=== PATIENT | female | born 1935 | race Caucasian/White ===

== ENCOUNTER 2018-03-21 14:24 | Inpatient (IN) | payer OTHER, MEDICAID ==
[~2018-03-21] VITALS: Ht 160 cm; Wt 92.1 kg
[~2018-03-21 14:24] MED LIST: ALENDRONATE SOD70 M2 PO; BENAZEPRIL20 M1 PO; COLACE100 MG PO; DILANTIN100 MG PO; LAC PO; LAMICTAL200 MG PO; LEVAQUIN250 MG PO; LEVOTHYROXINE0.1 M2 PO; LOVASTATIN20 MG PO; METFORMIN ER500 M1 PO; MOTRIN800 MG PO; NEURONTIN600 MG PO; NOR10T PO; NORCO1 TA2 PO
[2018-03-21 14:26] VITALS: Ht 160 cm; Wt 92.1 kg
[2018-03-21 15:22] LABS: BASOPHIL % 0.7 % (0-2); PLATELET COUNT 168 x10^3mcL (130-400)
[2018-03-21 15:25] LABS: CALCIUM 9.1 mg/dL (8.5-10.1); CARBON DIOXIDE 24.3 mmol/L (21-32); CHLORIDE SERUM 104 mmol/L (98-107); CREATININE SERUM 1.2 mg/dL (0.6-1.0); GLUCOSE SERUM 145 mg/dL (74-106); POTASSIUM SERUM 5.2 mmol/L (3.5-5.1); SODIUM SERUM 136 mmol/L (136-145)
[2018-03-21 15:30] LABS: ALBUMIN 3.3 g/dL (3.4-5.0); ALKALINE PHOSPHATASE 110 U/L (46-116); ALT/SGPT 20 U/L (14-59); AST/SGOT 19 U/L (15-37); BILIRUBIN TOTAL 0.4 mg/dL (0.20-1.00)
[2018-03-21 17:58] LABS: MAGNESIUM 2.1 mg/dL (1.8-2.4); PHOSPHOROUS 3.6 mg/dL (2.5-4.9)
[2018-03-21 17:59] LABS: CHOLESTEROL/HDL RATIO 1.8
[2018-03-21 18:08] LABS: FREE T4 0.99 ng/dL (0.76-1.46); FREE THYROXINE INDEX 1.8 ug/dL (1.4-4.5); T4(THYROXINE) 5.6 ug/dL (4.7-13.3)
[2018-03-21 18:17] LABS: T3 TOTAL 0.74 ng/mL
[2018-03-21 18:30] VITALS: BP 124/58
[2018-03-21] MEDS ORDERED: LAMICTAL150 MG PO (19:23)
[2018-03-21] MEDS ORDERED: DILANTIN100 MG PO (19:25)
[2018-03-21] MEDS ORDERED: LOVASTATIN20 MG PO (19:25)
[2018-03-21] MEDS ORDERED: NORCO 10-325 T1 EACH PO (19:26)
[2018-03-21 19:46] LABS: UA SPECIFIC GRAVITY 1.015 (1.005-1.035); microscopic required? YES; urine erythrocyte TRACE (NEGATIVE)
[2018-03-21 19:56] LABS: AMPHETAMINE QUAL UR NONE DETECTED (See below)
[2018-03-21 21:49] VITALS: BP 97/52
[2018-03-21 22:53] VITALS: BP 127/46
[2018-03-22 03:53] LABS: BASOPHIL % 0.5 % (0-2); PLATELET COUNT 154 x10^3mcL (130-400); RED CELL DISTRIBUTION WIDTH 13.9 % (11.5-14.5)
[2018-03-22 03:56] LABS: CALCIUM 8.5 mg/dL (8.5-10.1); CARBON DIOXIDE 29.1 mmol/L (21-32); CHLORIDE SERUM 103 mmol/L (98-107); GLUCOSE SERUM 116 mg/dL (74-106); MAGNESIUM 1.8 mg/dL (1.8-2.4); PHOSPHOROUS 4.2 mg/dL (2.5-4.9); POTASSIUM SERUM 4.4 mmol/L (3.5-5.1); SODIUM SERUM 137 mmol/L (136-145)
[2018-03-22 06:08] VITALS: BP 126/54
[2018-03-22 09:24] VITALS: BP 116/53
[2018-03-22 13:04] VITALS: BP 105/42
[2018-03-22 17:40] VITALS: BP 115/45
[2018-03-22 20:49] VITALS: BP 134/47
[2018-03-22 21:20] VITALS: BP 129/44
[2018-03-23 05:29] VITALS: BP 102/40
[2018-03-23 06:11] LABS: PLATELET COUNT 155 x10^3mcL (130-400); RED CELL DISTRIBUTION WIDTH 13.8 % (11.5-14.5)
[2018-03-23 06:50] LABS: CALCIUM 8.4 mg/dL (8.5-10.1); CARBON DIOXIDE 27.6 mmol/L (21-32); CHLORIDE SERUM 100 mmol/L (98-107); CREATININE SERUM 0.9 mg/dL (0.6-1.0); GLUCOSE SERUM 110 mg/dL (74-106); MAGNESIUM 1.8 mg/dL (1.8-2.4); PHOSPHOROUS 3.6 mg/dL (2.5-4.9); POTASSIUM SERUM 4.3 mmol/L (3.5-5.1); SODIUM SERUM 133 mmol/L (136-145)
[2018-03-23 09:40] VITALS: BP 106/46
[2018-03-23 12:35] VITALS: BP 92/42
[2018-03-23 17:27] VITALS: BP 108/35
[2018-03-23 19:45] VITALS: BP 138/54
[2018-03-24 05:54] VITALS: BP 124/52
[2018-03-24 06:32] LABS: BASOPHIL % 1.8 % (0-2); PLATELET COUNT 160 x10^3mcL (130-400); RED CELL DISTRIBUTION WIDTH 13.9 % (11.5-14.5)
[2018-03-24 06:45] LABS: CALCIUM 7.9 mg/dL (8.5-10.1); CARBON DIOXIDE 26.1 mmol/L (21-32); CHLORIDE SERUM 96 mmol/L (98-107); CREATININE SERUM 1.2 mg/dL (0.6-1.0); GLUCOSE SERUM 111 mg/dL (74-106); POTASSIUM SERUM 4.8 mmol/L (3.5-5.1); SODIUM SERUM 130 mmol/L (136-145)
[2018-03-24 09:37] VITALS: BP 108/51
[2018-03-24 12:47] VITALS: BP 109/42
[2018-03-24 17:22] VITALS: BP 119/41
[2018-03-24 21:24] VITALS: BP 108/50
[2018-03-25 05:37] VITALS: BP 98/50
[2018-03-25 06:31] LABS: CARBON DIOXIDE 25.9 mmol/L (21-32); CHLORIDE SERUM 96 mmol/L (98-107); CREATININE SERUM 1.6 mg/dL (0.6-1.0); GLUCOSE SERUM 98 mg/dL (74-106); POTASSIUM SERUM 4.5 mmol/L (3.5-5.1); SODIUM SERUM 132 mmol/L (136-145)
[2018-03-25 06:40] LABS: BASOPHIL % 0.4 % (0-2); PLATELET COUNT 165 x10^3mcL (130-400); RED CELL DISTRIBUTION WIDTH 13.9 % (11.5-14.5)
[2018-03-25 09:17] VITALS: BP 98/50
[2018-03-25 10:34] VITALS: BP 108/43
[2018-03-25 14:30] VITALS: BP 103/49
[2018-03-25 17:33] VITALS: BP 105/46
[2018-03-25 21:23] VITALS: BP 108/51
[2018-03-26 05:43] VITALS: BP 102/46
[2018-03-26 06:29] LABS: BASOPHIL % 0.3 % (0-2); PLATELET COUNT 164 x10^3mcL (130-400); RED CELL DISTRIBUTION WIDTH 13.9 % (11.5-14.5)
[2018-03-26 07:14] LABS: CALCIUM 7.6 mg/dL (8.5-10.1); CARBON DIOXIDE 25.4 mmol/L (21-32); CHLORIDE SERUM 96 mmol/L (98-107); CREATININE SERUM 2.1 mg/dL (0.6-1.0); GLUCOSE SERUM 95 mg/dL (74-106); POTASSIUM SERUM 5.3 mmol/L (3.5-5.1); SODIUM SERUM 131 mmol/L (136-145)
[2018-03-26 09:37] VITALS: BP 127/49
[2018-03-26 11:10] LABS: microscopic required? YES; urine erythrocyte NEGATIVE (NEGATIVE)
[2018-03-26 11:36] LABS: CREATININE UR 67.3 mg/dL
[2018-03-26 13:53] VITALS: BP 100/45
[2018-03-26 17:32] VITALS: BP 104/39
[2018-03-26 20:46] VITALS: BP 131/44
[2018-03-27 06:19] VITALS: BP 124/74
[2018-03-27 08:20] LABS: BASOPHIL % 0.4 % (0-2); PLATELET COUNT 168 x10^3mcL (130-400); RED CELL DISTRIBUTION WIDTH 13.6 % (11.5-14.5)
[2018-03-27 10:01] LABS: CALCIUM 8.9 mg/dL (8.5-10.1); CARBON DIOXIDE 25.4 mmol/L (21-32); CHLORIDE SERUM 97 mmol/L (98-107); CREATININE SERUM 1.7 mg/dL (0.6-1.0); GLUCOSE SERUM 134 mg/dL (74-106); SODIUM SERUM 132 mmol/L (136-145)
[2018-03-27 10:12] VITALS: BP 146/52
[2018-03-27 10:57] LABS: POTASSIUM SERUM 5.6 mmol/L (3.5-5.1)
[2018-03-27 13:05] VITALS: BP 150/70
[2018-03-27] MEDS ORDERED: IPRATROPIUM BROM3 M2 HHN (14:04)
[2018-03-27] MEDS ORDERED: VITAMIN B121000 MCG PO (14:05)
[2018-03-27] MEDS ORDERED: LAC PO (14:06)
[2018-03-27] MEDS ORDERED: BG FS (14:07)
[2018-03-27] MEDS ORDERED: DEXPF IV (14:07)
[2018-03-27] MEDS ORDERED: AMOXICILLIN/CLA1 TA6 PO (14:09)
[2018-03-27] MEDS ORDERED: METOPROLOL TART25 M1 PO (14:17)
[2018-03-27 15:30] VITALS: BP 150/70
[2018-03-27 17:39] VITALS: BP 138/52
[2018-03-27 20:31] VITALS: BP 139/58
== END 2018-03-27 21:01 | DRG 177 ==
LOC: ED 14:24 → MU 16:38 → DU 16:38 → MU 03-27 10:33
PROVIDERS: Emergency Medicine; Family Medicine; Internal Medicine
DX: J69.0 Pneumonitis due to inhalation of food and vomit (principal); I50.43 Acute on chronic combined systolic (congestive) and diastolic (congestive) heart failure; N17.0 Acute kidney failure with tubular necrosis; J96.01 Acute respiratory failure with hypoxia; E44.1 Mild protein-calorie malnutrition; D68.69 Other thrombophilia; N39.0 Urinary tract infection, site not specified; E87.1 Hypo-osmolality and hyponatremia; M94.0 Chondrocostal junction syndrome [Tietze]; I11.0 Hypertensive heart disease with heart failure; K21.9 Gastro-esophageal reflux disease without esophagitis; E11.65 Type 2 diabetes mellitus with hyperglycemia; E86.0 Dehydration; E03.9 Hypothyroidism, unspecified; E87.5 Hyperkalemia; D51.3 Other dietary vitamin B12 deficiency anemia; G40.909 Epilepsy, unspecified, not intractable, without status epilepticus; M19.90 Unspecified osteoarthritis, unspecified site; Z95.0 Presence of cardiac pacemaker; Z68.34 Body mass index [BMI] 34.0-34.9, adult; Z79.84 Long term (current) use of oral hypoglycemic drugs; F03.90 Unspecified dementia, unspecified severity, without behavioral disturbance, psychotic disturbance, mood disturbance, and anxiety; Z79.1 Long term (current) use of non-steroidal anti-inflammatories (NSAID)
CPT/HCPCS: 36600; 82962; 83880; 84439; 85378; 87804; 94150; 97110-GP; 97530-GP; J0456; J0696; J1940; J2543; J3420; J3490; J7030; J7620; Q0092

== ENCOUNTER 2018-04-02 20:02 | Inpatient (IN) | payer OTHER ==
[~2018-04-02] VITALS: Ht 157.5 cm; Wt 89.9 kg
[~2018-04-02 20:02] MED LIST changes: +AMOXICILLIN/CLA1 TA6 PO; +BG FS; +DEXPF IV; +IPRATROPIUM BROM3 M2 HHN; +LAMICTAL150 MG PO; +METOPROLOL TART25 M1 PO; +NORCO 10-325 T1 EACH PO; +VITAMIN B121000 MCG PO
[2018-04-02] MEDS ORDERED: APAP500 MG PO (20:29)
[2018-04-02] MEDS ORDERED: ALENDRONATE SOD70 M2 PO (20:29)
[2018-04-02] MEDS ORDERED: NORCO1 TA2 PO (20:30)
[2018-04-02] MEDS ORDERED: LAMICTAL150 MG PO (20:31)
[2018-04-02] MEDS ORDERED: ALBUTEROL SULFAT0.51 NEB (20:31)
[2018-04-02] MEDS ORDERED: LOVASTATIN20 MG PO (20:32)
[2018-04-02] MEDS ORDERED: LEVOTHYROXIN0.025 M2 PO (20:32)
[2018-04-02] MEDS ORDERED: NEU300 PO (20:33)
[2018-04-02] MEDS ORDERED: DILANTIN100 MG (20:36)
[2018-04-02] MEDS ORDERED: DILANTIN100 MG PO (20:37)
[2018-04-02 20:52] LABS: PLATELET COUNT 355 x10^3mcL (130-400); RED CELL DISTRIBUTION WIDTH 13.5 % (11.5-14.5)
[2018-04-02 21:07] LABS: BAND NEUTROPHIL 11 % (0-10); BASOPHIL 0 % (0-2); MONOCYTE 5 % (0-7); SEGMENTED NEUTROPHILS 76 % (37-75); ovalocyte/elliptocyte 1+; rbc morphology (normal/abnorm) ABNORMAL (NORMAL)
[2018-04-02 21:08] LABS: PLATELET MORPHOLOGY PLATELETS NORMAL
[2018-04-02 21:13] LABS: ALBUMIN 2.4 g/dL (3.4-5.0); ALKALINE PHOSPHATASE 245 U/L (46-116); ALT/SGPT 69 U/L (14-59); AST/SGOT 88 U/L (15-37); BILIRUBIN TOTAL 0.81 mg/dL (0.20-1.00); CALCIUM 8.4 mg/dL (8.5-10.1); CARBON DIOXIDE 28.4 mmol/L (21-32); CHLORIDE SERUM 93 mmol/L (98-107); CREATININE SERUM 2.2 mg/dL (0.6-1.0); GLUCOSE SERUM 176 mg/dL (74-106); LIPASE 175 IU/L (73-393); POTASSIUM SERUM 5.1 mmol/L (3.5-5.1); SODIUM SERUM 129 mmol/L (136-145)
[2018-04-02 22:00] LABS: microscopic required? YES; urine erythrocyte TRACE (NEGATIVE)
[2018-04-02 22:04] LABS: AMPHETAMINE QUAL UR NONE DETECTED (See below)
[2018-04-03] VITALS (7 sets, daily range): BP systolic 96–112; BP diastolic 52–70
[2018-04-03] MEDS ORDERED: TOPROL XL25 MG PO (01:41)
[2018-04-03] MEDS ORDERED: DULCOLAX10 M1 RC (01:42)
[2018-04-03] MEDS ORDERED: ALBUTEROL SULFAT0.51 IH (01:43)
[2018-04-03] MEDS ORDERED: MP (01:44)
[2018-04-03] MEDS ORDERED: GOOD NEIGH1200 MG/15 PO (01:45)
[2018-04-03 02:42] LABS: CHOLESTEROL/HDL RATIO 3.3; MAGNESIUM 3.6 mg/dL (1.8-2.4); PHOSPHOROUS 4.7 mg/dL (2.5-4.9)
[2018-04-03 06:23] LABS: CALCIUM 8.1 mg/dL (8.5-10.1); CARBON DIOXIDE 24.8 mmol/L (21-32); CHLORIDE SERUM 94 mmol/L (98-107); CREATININE SERUM 2.1 mg/dL (0.6-1.0); GLUCOSE SERUM 131 mg/dL (74-106); MAGNESIUM 3.1 mg/dL (1.8-2.4); PHOSPHOROUS 5.2 mg/dL (2.5-4.9); POTASSIUM SERUM 4.7 mmol/L (3.5-5.1); SODIUM SERUM 129 mmol/L (136-145)
[2018-04-03 06:28] LABS: BASOPHIL % 0.4 % (0-2); PLATELET COUNT 297 x10^3mcL (130-400)
[2018-04-04 05:35] VITALS: BP 110/49
[2018-04-04 06:21] LABS: BASOPHIL % 0.3 % (0-2); PLATELET COUNT 334 x10^3mcL (130-400); RED CELL DISTRIBUTION WIDTH 13.9 % (11.5-14.5)
[2018-04-04 06:56] LABS: CALCIUM 8.2 mg/dL (8.5-10.1); CARBON DIOXIDE 22.7 mmol/L (21-32); CHLORIDE SERUM 94 mmol/L (98-107); GLUCOSE SERUM 119 mg/dL (74-106); MAGNESIUM 3.5 mg/dL (1.8-2.4); PHOSPHOROUS 4.6 mg/dL (2.5-4.9); POTASSIUM SERUM 4.9 mmol/L (3.5-5.1); SODIUM SERUM 128 mmol/L (136-145)
[2018-04-04 13:36] VITALS: BP 129/52
[2018-04-04 16:53] VITALS: BP 110/60
[2018-04-04 20:28] VITALS: BP 112/60
[2018-04-05 05:28] VITALS: BP 112/43
[2018-04-05 06:32] LABS: BASOPHIL % 0.4 % (0-2); PLATELET COUNT 382 x10^3mcL (130-400); RED CELL DISTRIBUTION WIDTH 13.9 % (11.5-14.5)
[2018-04-05 06:41] LABS: CALCIUM 7.8 mg/dL (8.5-10.1); CARBON DIOXIDE 24.9 mmol/L (21-32); CHLORIDE SERUM 99 mmol/L (98-107); CREATININE SERUM 1.7 mg/dL (0.6-1.0); GLUCOSE SERUM 131 mg/dL (74-106); MAGNESIUM 3.2 mg/dL (1.8-2.4); PHOSPHOROUS 3.7 mg/dL (2.5-4.9); POTASSIUM SERUM 5.2 mmol/L (3.5-5.1); SODIUM SERUM 134 mmol/L (136-145)
[2018-04-05 10:53] VITALS: BP 145/68
[2018-04-05 14:31] VITALS: BP 120/66
[2018-04-05 19:04] VITALS: BP 112/55
[2018-04-05 20:40] VITALS: BP 103/64
[2018-04-06 05:04] VITALS: BP 117/58
[2018-04-06 07:32] VITALS: BP 109/58
[2018-04-06 08:02] LABS: CARBON DIOXIDE 27.5 mmol/L (21-32); CHLORIDE SERUM 98 mmol/L (98-107); CREATININE SERUM 1.8 mg/dL (0.6-1.0); GLUCOSE SERUM 139 mg/dL (74-106); MAGNESIUM 3.2 mg/dL (1.8-2.4); PHOSPHOROUS 4.3 mg/dL (2.5-4.9); POTASSIUM SERUM 5.1 mmol/L (3.5-5.1); SODIUM SERUM 132 mmol/L (136-145)
[2018-04-06 08:12] LABS: BASOPHIL % 0.4 % (0-2); PLATELET COUNT 394 x10^3mcL (130-400)
[2018-04-06 12:15] VITALS: BP 112/46
[2018-04-06 17:37] VITALS: BP 112/46
[2018-04-06 17:41] VITALS: BP 103/48
[2018-04-06 20:29] VITALS: BP 118/53
[2018-04-07 05:48] VITALS: BP 120/63
[2018-04-07 06:25] LABS: BASOPHIL % 0.5 % (0-2); PLATELET COUNT 392 x10^3mcL (130-400)
[2018-04-07 06:30] LABS: CALCIUM 8.4 mg/dL (8.5-10.1); CARBON DIOXIDE 28.5 mmol/L (21-32); CHLORIDE SERUM 97 mmol/L (98-107); CREATININE SERUM 1.7 mg/dL (0.6-1.0); GLUCOSE SERUM 151 mg/dL (74-106); SODIUM SERUM 131 mmol/L (136-145)
[2018-04-07 10:06] VITALS: BP 130/53
[2018-04-07 14:09] VITALS: BP 116/52
[2018-04-07 17:25] VITALS: BP 107/54
[2018-04-07 21:11] VITALS: BP 113/40
[2018-04-08 05:01] VITALS: BP 95/31
[2018-04-08 06:33] LABS: CALCIUM 8.3 mg/dL (8.5-10.1); CHLORIDE SERUM 99 mmol/L (98-107); CREATININE SERUM 1.9 mg/dL (0.6-1.0); GLUCOSE SERUM 129 mg/dL (74-106); MAGNESIUM 3.1 mg/dL (1.8-2.4); POTASSIUM SERUM 5.1 mmol/L (3.5-5.1); SODIUM SERUM 133 mmol/L (136-145)
[2018-04-08 06:47] LABS: BASOPHIL % 0.2 % (0-2); PLATELET COUNT 348 x10^3mcL (130-400); RED CELL DISTRIBUTION WIDTH 13.8 % (11.5-14.5)
[2018-04-08 08:26] VITALS: BP 100/60
[2018-04-08 12:44] VITALS: BP 110/61
[2018-04-08 15:57] VITALS: BP 118/53
[2018-04-08 20:20] VITALS: BP 109/51
[2018-04-09 05:09] VITALS: BP 114/55
[2018-04-09 06:57] LABS: BASOPHIL % 0.2 % (0-2); PLATELET COUNT 331 x10^3mcL (130-400); RED CELL DISTRIBUTION WIDTH 14.1 % (11.5-14.5)
[2018-04-09 07:19] LABS: CALCIUM 8.3 mg/dL (8.5-10.1); CHLORIDE SERUM 99 mmol/L (98-107); GLUCOSE SERUM 157 mg/dL (74-106); MAGNESIUM 2.9 mg/dL (1.8-2.4); POTASSIUM SERUM 5.1 mmol/L (3.5-5.1); SODIUM SERUM 136 mmol/L (136-145)
[2018-04-09 08:40] VITALS: BP 130/61
[2018-04-09 09:56] LABS: IRON 33 ug/dL (50-170); TOTAL IRON BINDING CAPACITY 175 ug/dL (250-450)
[2018-04-09 10:23] LABS: RED BLOOD CELLS 2.78 M/mm3 (4.10-5.10)
[2018-04-09 12:20] VITALS: BP 99/54
[2018-04-09 16:41] VITALS: BP 119/50
[2018-04-09 21:41] VITALS: BP 111/53
[2018-04-10 05:37] VITALS: BP 103/47
[2018-04-10 06:23] LABS: BASOPHIL % 0.4 % (0-2); PLATELET COUNT 309 x10^3mcL (130-400); RED CELL DISTRIBUTION WIDTH 14.2 % (11.5-14.5)
[2018-04-10 06:26] LABS: CARBON DIOXIDE 28.7 mmol/L (21-32); CHLORIDE SERUM 102 mmol/L (98-107); CREATININE SERUM 1.9 mg/dL (0.6-1.0); GLUCOSE SERUM 139 mg/dL (74-106); POTASSIUM SERUM 5.2 mmol/L (3.5-5.1); SODIUM SERUM 136 mmol/L (136-145)
[2018-04-10 10:26] VITALS: BP 125/65
[2018-04-10 13:59] VITALS: BP 110/68
[2018-04-10 17:58] VITALS: BP 149/80
[2018-04-10 20:50] VITALS: BP 117/55
[2018-04-11 05:32] VITALS: BP 107/57
[2018-04-11 07:29] LABS: BASOPHIL % 0.6 % (0-2); PLATELET COUNT 336 x10^3mcL (130-400); RED CELL DISTRIBUTION WIDTH 14.3 % (11.5-14.5)
[2018-04-11 08:04] LABS: CALCIUM 8.4 mg/dL (8.5-10.1); CARBON DIOXIDE 28.1 mmol/L (21-32); CHLORIDE SERUM 103 mmol/L (98-107); CREATININE SERUM 1.8 mg/dL (0.6-1.0); GLUCOSE SERUM 133 mg/dL (74-106); POTASSIUM SERUM 4.6 mmol/L (3.5-5.1); SODIUM SERUM 140 mmol/L (136-145)
[2018-04-11 09:13] VITALS: BP 115/53
[2018-04-11 13:36] VITALS: BP 120/61
[2018-04-11 17:27] VITALS: BP 103/50
[2018-04-11 21:58] VITALS: BP 114/53
[2018-04-12 06:42] VITALS: BP 111/63
[2018-04-12 07:45] LABS: CALCIUM 8.3 mg/dL (8.5-10.1); CHLORIDE SERUM 102 mmol/L (98-107); CREATININE SERUM 1.6 mg/dL (0.6-1.0); GLUCOSE SERUM 110 mg/dL (74-106); MAGNESIUM 2.9 mg/dL (1.8-2.4); POTASSIUM SERUM 4.3 mmol/L (3.5-5.1); SODIUM SERUM 142 mmol/L (136-145)
[2018-04-12 08:46] VITALS: BP 142/76
[2018-04-12 08:56] LABS: BASOPHIL % 0.4 % (0-2); PLATELET COUNT 311 x10^3mcL (130-400); RED CELL DISTRIBUTION WIDTH 14.2 % (11.5-14.5)
[2018-04-12 12:52] VITALS: BP 117/63
[2018-04-12 16:45] VITALS: BP 137/59
[2018-04-13 04:14] VITALS: BP 110/51
[2018-04-13 07:11] LABS: CALCIUM 8.4 mg/dL (8.5-10.1); CARBON DIOXIDE 29.5 mmol/L (21-32); CHLORIDE SERUM 100 mmol/L (98-107); GLUCOSE SERUM 153 mg/dL (74-106); MAGNESIUM 2.9 mg/dL (1.8-2.4); PHOSPHOROUS 5.6 mg/dL (2.5-4.9); POTASSIUM SERUM 5.2 mmol/L (3.5-5.1); SODIUM SERUM 137 mmol/L (136-145)
[2018-04-13 07:42] LABS: BASOPHIL % 0.2 % (0-2); PLATELET COUNT 312 x10^3mcL (130-400); RED CELL DISTRIBUTION WIDTH 14.1 % (11.5-14.5)
[2018-04-13 08:33] VITALS: BP 126/63
[2018-04-13 12:00] VITALS: BP 105/52
[2018-04-13 16:26] VITALS: BP 124/60
[2018-04-13 20:24] VITALS: BP 107/46
[2018-04-14 04:47] VITALS: BP 120/54
[2018-04-14 06:34] LABS: CALCIUM 8.9 mg/dL (8.5-10.1); CARBON DIOXIDE 29.1 mmol/L (21-32); CHLORIDE SERUM 95 mmol/L (98-107); CREATININE SERUM 2.1 mg/dL (0.6-1.0); GLUCOSE SERUM 177 mg/dL (74-106); MAGNESIUM 2.6 mg/dL (1.8-2.4); PHOSPHOROUS 5.8 mg/dL (2.5-4.9); SODIUM SERUM 135 mmol/L (136-145)
[2018-04-14 07:48] LABS: BASOPHIL % 0.2 % (0-2); PLATELET COUNT 288 x10^3mcL (130-400); RED CELL DISTRIBUTION WIDTH 14.3 % (11.5-14.5)
[2018-04-14 09:44] VITALS: BP 98/51
[2018-04-14 13:35] VITALS: BP 135/51
[2018-04-14 17:33] VITALS: BP 116/57
[2018-04-14 20:47] VITALS: BP 113/42
[2018-04-15 05:06] VITALS: BP 121/59
[2018-04-15 08:12] LABS: CALCIUM 8.9 mg/dL (8.5-10.1); CARBON DIOXIDE 30.7 mmol/L (21-32); CHLORIDE SERUM 95 mmol/L (98-107); CREATININE SERUM 2.2 mg/dL (0.6-1.0); GLUCOSE SERUM 162 mg/dL (74-106); POTASSIUM SERUM 4.8 mmol/L (3.5-5.1); SODIUM SERUM 133 mmol/L (136-145)
[2018-04-15 08:24] LABS: PLATELET COUNT 340 x10^3mcL (130-400)
[2018-04-15 08:25] LABS: BASOPHIL % 0 % (0-2); RED CELL DISTRIBUTION WIDTH 15.1 % (11.5-14.5)
[2018-04-15 09:57] VITALS: BP 118/55
[2018-04-15 13:58] VITALS: BP 118/55
[2018-04-15 14:27] VITALS: BP 111/53
[2018-04-15 17:02] VITALS: BP 110/54
[2018-04-16 06:07] VITALS: BP 130/53
[2018-04-16 07:35] LABS: BASOPHIL % 0.2 % (0-2)
[2018-04-16 07:40] LABS: PLATELET COUNT 305 x10^3mcL (130-400)
[2018-04-16 07:41] LABS: RED CELL DISTRIBUTION WIDTH 15.2 % (11.5-14.5)
[2018-04-16 07:44] LABS: CALCIUM 8.7 mg/dL (8.5-10.1); CARBON DIOXIDE 33.3 mmol/L (21-32); CHLORIDE SERUM 97 mmol/L (98-107); CREATININE SERUM 2.3 mg/dL (0.6-1.0); POTASSIUM SERUM 4.6 mmol/L (3.5-5.1); SODIUM SERUM 139 mmol/L (136-145)
[2018-04-16 07:46] LABS: GLUCOSE SERUM 169 mg/dL (74-106)
[2018-04-16 09:39] VITALS: BP 114/52
[2018-04-16 14:07] VITALS: BP 104/46
[2018-04-16 17:11] VITALS: BP 111/49
[2018-04-16 21:21] VITALS: BP 117/55
[2018-04-17] VITALS (9 sets, daily range): BP systolic 105–148; BP diastolic 40–60
[2018-04-17 10:13] LABS: BASOPHIL % 0.2 % (0-2); PLATELET COUNT 310 x10^3mcL (130-400)
[2018-04-17 10:20] LABS: RED CELL DISTRIBUTION WIDTH 15.1 % (11.5-14.5)
[2018-04-17 10:28] LABS: CALCIUM 9.1 mg/dL (8.5-10.1); CARBON DIOXIDE 32.5 mmol/L (21-32); CHLORIDE SERUM 95 mmol/L (98-107); CREATININE SERUM 2.2 mg/dL (0.6-1.0); GLUCOSE SERUM 174 mg/dL (74-106); POTASSIUM SERUM 4.4 mmol/L (3.5-5.1); SODIUM SERUM 137 mmol/L (136-145)
[2018-04-18 05:37] VITALS: BP 109/42
[2018-04-18 07:12] LABS: CALCIUM 8.8 mg/dL (8.5-10.1); CARBON DIOXIDE 32.5 mmol/L (21-32); CHLORIDE SERUM 95 mmol/L (98-107); CREATININE SERUM 2.2 mg/dL (0.6-1.0); GLUCOSE SERUM 144 mg/dL (74-106); POTASSIUM SERUM 4.5 mmol/L (3.5-5.1); SODIUM SERUM 135 mmol/L (136-145)
[2018-04-18 07:57] LABS: PLATELET COUNT 293 x10^3mcL (130-400)
[2018-04-18 08:01] LABS: BASOPHIL % 0 % (0-2); RED CELL DISTRIBUTION WIDTH 15.3 % (11.5-14.5)
[2018-04-18 08:05] VITALS: BP 124/62
[2018-04-18 11:47] VITALS: BP 110/55
[2018-04-18 18:11] VITALS: BP 108/46
[2018-04-18 20:05] VITALS: BP 111/42
[2018-04-19] VITALS (7 sets, daily range): BP systolic 102–122; BP diastolic 41–57
[2018-04-19 07:06] LABS: CALCIUM 8.6 mg/dL (8.5-10.1); CARBON DIOXIDE 35.2 mmol/L (21-32); CHLORIDE SERUM 96 mmol/L (98-107); CREATININE SERUM 2.1 mg/dL (0.6-1.0); GLUCOSE SERUM 172 mg/dL (74-106); MAGNESIUM 2.6 mg/dL (1.8-2.4); PHOSPHOROUS 5.2 mg/dL (2.5-4.9); POTASSIUM SERUM 4.2 mmol/L (3.5-5.1); SODIUM SERUM 138 mmol/L (136-145)
[2018-04-19 07:47] LABS: BASOPHIL % 0.1 % (0-2); PLATELET COUNT 264 x10^3mcL (130-400); RED CELL DISTRIBUTION WIDTH 15.4 % (11.5-14.5)
[2018-04-20] VITALS (10 sets, daily range): BP systolic 107–119; BP diastolic 41–62
[2018-04-20 06:12] LABS: BASOPHIL % 0.4 % (0-2); PLATELET COUNT 247 x10^3mcL (130-400)
[2018-04-20 06:47] LABS: RED CELL DISTRIBUTION WIDTH 15.6 % (11.5-14.5)
[2018-04-20 07:15] LABS: CALCIUM 8.8 mg/dL (8.5-10.1); CARBON DIOXIDE 32.2 mmol/L (21-32); CHLORIDE SERUM 98 mmol/L (98-107); CREATININE SERUM 1.8 mg/dL (0.6-1.0); GLUCOSE SERUM 115 mg/dL (74-106); MAGNESIUM 2.5 mg/dL (1.8-2.4); PHOSPHOROUS 4.7 mg/dL (2.5-4.9); POTASSIUM SERUM 3.7 mmol/L (3.5-5.1); SODIUM SERUM 138 mmol/L (136-145)
[2018-04-20 17:21] LABS: APPEARANCE FLUID CLOUDY; COLOR FLUID RED; RBC FLUID 2972 /cumm; SOURCE FLUID PLEURAL; WBC FLUID 0 /cumm
[2018-04-21] VITALS (7 sets, daily range): BP systolic 97–117; BP diastolic 40–73
[2018-04-21 06:04] LABS: BASOPHIL % 0.1 % (0-2); PLATELET COUNT 231 x10^3mcL (130-400)
[2018-04-21 06:18] LABS: CALCIUM 8.7 mg/dL (8.5-10.1); CARBON DIOXIDE 36.8 mmol/L (21-32); CHLORIDE SERUM 96 mmol/L (98-107); CREATININE SERUM 1.8 mg/dL (0.6-1.0); GLUCOSE SERUM 173 mg/dL (74-106); MAGNESIUM 2.6 mg/dL (1.8-2.4); PHOSPHOROUS 4.5 mg/dL (2.5-4.9); POTASSIUM SERUM 4.3 mmol/L (3.5-5.1); SODIUM SERUM 140 mmol/L (136-145)
[2018-04-21 06:51] LABS: RED CELL DISTRIBUTION WIDTH 15.4 % (11.5-14.5)
[2018-04-22 05:08] VITALS: BP 98/48
[2018-04-22 07:15] LABS: CALCIUM 8.7 mg/dL (8.5-10.1); CHLORIDE SERUM 97 mmol/L (98-107); CREATININE SERUM 1.7 mg/dL (0.6-1.0); GLUCOSE SERUM 111 mg/dL (74-106); MAGNESIUM 2.3 mg/dL (1.8-2.4); PHOSPHOROUS 4.3 mg/dL (2.5-4.9); POTASSIUM SERUM 3.6 mmol/L (3.5-5.1); SODIUM SERUM 139 mmol/L (136-145)
[2018-04-22 07:20] LABS: PLATELET COUNT 205 x10^3mcL (130-400)
[2018-04-22 07:31] LABS: BASOPHIL % 0 % (0-2); RED CELL DISTRIBUTION WIDTH 15.5 % (11.5-14.5)
[2018-04-22 08:12] VITALS: BP 109/60
[2018-04-22 12:28] VITALS: BP 107/59
[2018-04-22] MEDS ORDERED: LASIX40 MG PO (14:13)
[2018-04-22] MEDS ORDERED: LEVOFLOXACIN500 M1 PO (14:15)
[2018-04-22] MEDS ORDERED: LEVOFLOXACIN250 MG PO (14:35)
[2018-04-22] MEDS ORDERED: Z5 PO (14:37)
[2018-04-22] MEDS ORDERED: CLINDAMYCI600 MG/51 IV (14:37)
[2018-04-22] MEDS ORDERED: L40I IV (15:08)
[2018-04-22 15:35] VITALS: BP 107/59
[2018-04-22 15:44] VITALS: BP 106/61
== END 2018-04-22 19:45 | DRG 871 ==
LOC: ED 20:02 → DU 23:49
PROVIDERS: Emergency Medicine; Family Medicine; General Practice; Internal Medicine; Internal Medicine Nephrology
PROC: 05HM33Z Insertion of Infusion Device into Right Internal Jugular Vein, Percutaneous Approach (ICD-10-PCS; principal; 2018-04-17)
PROC: B543ZZA Ultrasonography of Right Jugular Veins, Guidance (ICD-10-PCS; 2018-04-17)
PROC: 0W993ZZ Drainage of Right Pleural Cavity, Percutaneous Approach (ICD-10-PCS; 2018-04-20)
DX: A41.9 Sepsis, unspecified organism (principal); E43 Unspecified severe protein-calorie malnutrition; N17.0 Acute kidney failure with tubular necrosis; J18.9 Pneumonia, unspecified organism; I50.43 Acute on chronic combined systolic (congestive) and diastolic (congestive) heart failure; J96.01 Acute respiratory failure with hypoxia; G93.41 Metabolic encephalopathy; E87.1 Hypo-osmolality and hyponatremia; B37.49 Other urogenital candidiasis; I24.8 Other forms of acute ischemic heart disease; I13.0 Hypertensive heart and chronic kidney disease with heart failure and stage 1 through stage 4 chronic kidney disease, or unspecified chronic kidney disease; J90 Pleural effusion, not elsewhere classified; I48.2 Chronic atrial fibrillation; G40.909 Epilepsy, unspecified, not intractable, without status epilepticus; N18.9 Chronic kidney disease, unspecified; E03.9 Hypothyroidism, unspecified; R80.9 Proteinuria, unspecified; Z95.0 Presence of cardiac pacemaker; Z68.33 Body mass index [BMI] 33.0-33.9, adult; F03.90 Unspecified dementia, unspecified severity, without behavioral disturbance, psychotic disturbance, mood disturbance, and anxiety
CPT/HCPCS: 31720; 32555; 36600; 82962; 83880; 84439; 87804; 88344; 92526-GN; 92610-GN; 92611-GN; 94150; 97110-GP; 97530-GP; G0480; J0456; J1160; J1450; J1642; J1644; J1815; J1940; J1956; J2270; J2543; J2916; J2920; J3370; J3490; J7030; J7040; J7050; J7620; Q0092

== ENCOUNTER 2018-06-30 03:52 | Inpatient (IN) | payer OTHER, MEDICAID ==
[~2018-06-30] VITALS: Ht 152.4 cm; Wt 68.7 kg
[~2018-06-30 03:52] MED LIST changes: +ALBUTEROL SULFAT0.51 IH; +ALBUTEROL SULFAT0.51 NEB; +APAP500 MG PO; +CLINDAMYCI600 MG/51 IV; +DILANTIN100 MG; +DULCOLAX10 M1 RC; +GOOD NEIGH1200 MG/15 PO; +L40I IV; +LASIX40 MG PO; +LEVOFLOXACIN250 MG PO; +LEVOFLOXACIN500 M1 PO; +LEVOTHYROXIN0.025 M2 PO; +MP; +NEU300 PO; +TOPROL XL25 MG PO; +Z5 PO
[2018-06-30 04:05] VITALS: Ht 152.4 cm; Wt 68.7 kg
[2018-06-30] MEDS ORDERED: ALLOPURINOL100 MG PO (04:52)
[2018-06-30] MEDS ORDERED: ARANESP0.025 MG/1 IJ (04:53)
[2018-06-30] MEDS ORDERED: LIPI10 PO (04:54)
[2018-06-30] MEDS ORDERED: PERIOGARD473 ML PO (04:55)
[2018-06-30] MEDS ORDERED: DULCOLAX10 M1 (04:56)
[2018-06-30] MEDS ORDERED: VITAMIN B121000 MCG PO (04:56)
[2018-06-30] MEDS ORDERED: ELIQUIS2.5 MG PO (04:57)
[2018-06-30] MEDS ORDERED: FLEET ENEMA135 ML PR (04:57)
[2018-06-30] MEDS ORDERED: FUROSEMIDE40 MG PO (04:58)
[2018-06-30] MEDS ORDERED: COMINH INH (04:59)
[2018-06-30] MEDS ORDERED: GABAPENTIN600 M1 PO (04:59)
[2018-06-30] MEDS ORDERED: LAMOTRIGINE150 M1 PO (05:01)
[2018-06-30] MEDS ORDERED: ACIDOPHILUS100 MG PO (05:01)
[2018-06-30] MEDS ORDERED: METOPROLOL SUCC50 M2 PO (05:02)
[2018-06-30] MEDS ORDERED: SYNTHROID0.125 MG PO (05:02)
[2018-06-30] MEDS ORDERED: GOOD NEIGH1200 MG/15 PO (05:03)
[2018-06-30] MEDS ORDERED: NOVOLOG FLEX100 U/M1 SC (05:04)
[2018-06-30] MEDS ORDERED: PHENYTOIN50 MG PO (05:05)
[2018-06-30] MEDS ORDERED: GOOD NEIGHBOR650 M2 PO (05:06)
[2018-06-30] MEDS ORDERED: VANCOMYCIN125 MG/2.5 (05:08)
[2018-06-30 05:09] LABS: BASOPHIL % 0.6 % (0-2); PLATELET COUNT 204 x10^3mcL (130-400)
[2018-06-30] MEDS ORDERED: METHYLPRED IJ (05:09)
[2018-06-30] MEDS ORDERED: NOVAPLUS ZOSYN50 ML IV (05:10)
[2018-06-30] MEDS ORDERED: PREDNISONE20 MG PO (05:11)
[2018-06-30 05:21] LABS: ALKALINE PHOSPHATASE 113 U/L (46-116); ALT/SGPT 18 U/L (14-59); AST/SGOT 16 U/L (15-37); BILIRUBIN TOTAL 0.42 mg/dL (0.20-1.00); CALCIUM 8.9 mg/dL (8.5-10.1); CARBON DIOXIDE 32.2 mmol/L (21-32); CHLORIDE SERUM 94 mmol/L (98-107); CREATININE SERUM 1.5 mg/dL (0.6-1.0); GLUCOSE SERUM 108 mg/dL (74-106); SODIUM SERUM 135 mmol/L (136-145); TOTAL PROTEIN, SERUM 7.4 g/dL (6.4-8.2)
[2018-06-30 05:22] LABS: ALBUMIN 2.5 g/dL (3.4-5.0)
[2018-06-30 05:27] LABS: POTASSIUM SERUM 2.7 mmol/L (3.5-5.1)
[2018-06-30 05:35] LABS: microscopic required? YES; urine erythrocyte TRACE (NEGATIVE)
[2018-06-30 05:43] LABS: RED CELL DISTRIBUTION WIDTH 15.9 % (11.5-14.5)
[2018-06-30 10:42] LABS: MAGNESIUM 2.1 mg/dL (1.8-2.4); PHOSPHOROUS 2.7 mg/dL (2.5-4.9)
[2018-06-30 10:43] LABS: CHOLESTEROL/HDL RATIO 2.6
[2018-06-30 16:18] VITALS: BP 130/51
[2018-06-30 17:53] VITALS: BP 118/58
[2018-06-30 20:52] VITALS: BP 123/56
[2018-07-01 06:21] LABS: CALCIUM 7.8 mg/dL (8.5-10.1); CARBON DIOXIDE 30.4 mmol/L (21-32); CHLORIDE SERUM 98 mmol/L (98-107); CREATININE SERUM 1.2 mg/dL (0.6-1.0); GLUCOSE SERUM 121 mg/dL (74-106); MAGNESIUM 1.7 mg/dL (1.8-2.4); PHOSPHOROUS 2.3 mg/dL (2.5-4.9); POTASSIUM SERUM 3.3 mmol/L (3.5-5.1); SODIUM SERUM 137 mmol/L (136-145)
[2018-07-01 06:37] VITALS: BP 110/43
[2018-07-01 06:46] LABS: BASOPHIL % 0.5 % (0-2); PLATELET COUNT 172 x10^3mcL (130-400)
[2018-07-01 06:47] LABS: RED CELL DISTRIBUTION WIDTH 16.2 % (11.5-14.5)
[2018-07-01 08:54] VITALS: BP 120/53
[2018-07-01 12:50] VITALS: BP 106/46
[2018-07-01 17:30] VITALS: BP 113/47
[2018-07-01 21:00] VITALS: BP 114/41
[2018-07-02 06:28] VITALS: BP 110/48
[2018-07-02 06:28] LABS: BASOPHIL % 0.3 % (0-2); PLATELET COUNT 148 x10^3mcL (130-400)
[2018-07-02 06:34] LABS: CALCIUM 7.7 mg/dL (8.5-10.1); CARBON DIOXIDE 27.8 mmol/L (21-32); CHLORIDE SERUM 97 mmol/L (98-107); CREATININE SERUM 1.6 mg/dL (0.6-1.0); GLUCOSE SERUM 134 mg/dL (74-106); MAGNESIUM 1.8 mg/dL (1.8-2.4); PHOSPHOROUS 2.6 mg/dL (2.5-4.9); POTASSIUM SERUM 3.3 mmol/L (3.5-5.1); SODIUM SERUM 135 mmol/L (136-145)
[2018-07-02 06:43] LABS: RED CELL DISTRIBUTION WIDTH 16.7 % (11.5-14.5)
[2018-07-02 09:03] VITALS: BP 103/46
[2018-07-02 17:31] VITALS: BP 94/44
[2018-07-02 20:32] VITALS: BP 97/37
[2018-07-02 21:07] VITALS: BP 98/42
[2018-07-03 05:25] VITALS: BP 109/36; BP 19/36
[2018-07-03 06:32] LABS: CALCIUM 7.9 mg/dL (8.5-10.1); CARBON DIOXIDE 26.5 mmol/L (21-32); CHLORIDE SERUM 95 mmol/L (98-107); CREATININE SERUM 1.7 mg/dL (0.6-1.0); GLUCOSE SERUM 88 mg/dL (74-106); MAGNESIUM 1.7 mg/dL (1.8-2.4); PHOSPHOROUS 3.5 mg/dL (2.5-4.9); SODIUM SERUM 133 mmol/L (136-145)
[2018-07-03 06:42] LABS: POTASSIUM SERUM 2.7 mmol/L (3.5-5.1)
[2018-07-03 06:49] LABS: BASOPHIL % 0.3 % (0-2); PLATELET COUNT 142 x10^3mcL (130-400)
[2018-07-03 06:50] LABS: RED CELL DISTRIBUTION WIDTH 16.6 % (11.5-14.5)
[2018-07-03] MEDS ORDERED: VANCOCIN125 MG PO (09:43)
[2018-07-03] MEDS ORDERED: LEVAQUIN750 MG PO (09:44)
[2018-07-03] MEDS ORDERED: DIFLUCAN200 MG PO (09:44)
[2018-07-03 09:59] VITALS: BP 110/39
[2018-07-03] MEDS ORDERED: LEV500 PO (09:59)
[2018-07-03 14:21] VITALS: BP 125/74
[2018-07-03 14:48] VITALS: BP 125/74
== END 2018-07-03 16:22 | DRG 193 ==
LOC: ED 03:52 → DU 08:58
PROVIDERS: Emergency Medicine; ADMIT Family Medicine
DX: J18.9 Pneumonia, unspecified organism (principal); N17.0 Acute kidney failure with tubular necrosis; E43 Unspecified severe protein-calorie malnutrition; G92 Toxic encephalopathy; N39.0 Urinary tract infection, site not specified; A04.72 Enterocolitis due to Clostridium difficile, not specified as recurrent; J90 Pleural effusion, not elsewhere classified; E11.42 Type 2 diabetes mellitus with diabetic polyneuropathy; I48.91 Unspecified atrial fibrillation; E87.6 Hypokalemia; G40.909 Epilepsy, unspecified, not intractable, without status epilepticus; D64.9 Anemia, unspecified; E03.9 Hypothyroidism, unspecified; I10 Essential (primary) hypertension; Z95.0 Presence of cardiac pacemaker; Z68.30 Body mass index [BMI] 30.0-30.9, adult; Z79.84 Long term (current) use of oral hypoglycemic drugs
CPT/HCPCS: 82962; 83880; 87046; 87046-59; 94150; 97110-GP; 97530-GP; J1450; J1940; J2543; J3370; J3480; J3490; J7030; J7620; Q0092